=== PATIENT | male | born 1970 | race Caucasian/White ===

== ENCOUNTER 2020-11-29 06:00 | Inpatient (IN) ==
[2020-11-26 11:48] LABS: Basophils % 0.8 % (0.0-0.8); Eosinophils # 0.1 10*3/uL (0.0-0.87); Eosinophils % 2.6 % (0.00-10.9); Hematocrit 46.4 VOL% (42.0-52.0); Immature Granulocytes % 0.2 %; Immature Granulocytes Absolute 0.01 #; Lymphocytes # 1.7 10*3/uL (1.4-4.0); Lymphocytes % 33.3 % (21.2-54.2); Mean Corpuscular HGB Conc 34.5 GM/DL (32-36); Mean Corpuscular Volume 92.6 FL (87-102); Mean Platelet Volume 10.4 FL (9.6-12.0); Monocytes % 8.8 % (1.7-12.7); Neutrophils % 54.3 % (38.7-73.9); Platelet Count 303 T/CUMM (130-400); Red Blood Count 5.01 MC/CUMM (3.8-5.5)
[2020-11-26 11:57] LABS: Calcium 8.5 MG/DL (8.5-10.1); Osmolality,Calculated 281.3 MOS/KG (273-304); Potassium 4.5 MMOL/L (3.5-5.1)
[2020-11-29] MEDS ORDERED: TISSUE ADHESIVE 1 EACH APPLICATOR TOP ONE (06:11)
[2020-11-29] MEDS ORDERED: INDOCYANINE GREEN 25 MG VIAL IV ONE ×2 (06:11→08:40)
[2020-11-29] MEDS ORDERED: propofoL 200 MG/20 ML VIAL IV ONE (06:13)
[2020-11-29] MEDS ORDERED: LIDOCAINE 2% 5 ML VIAL ONE (06:13)
[2020-11-29] MEDS ORDERED: ROCURONIUM 50 MG/5 ML VIAL IV ONE (06:13)
[2020-11-29] MEDS ORDERED: MIDAZOLAM 2 MG/2 ML VIAL ONE ×2 (06:14→07:05)
[2020-11-29] MEDS ORDERED: fentaNYL 100 MCG/2 ML VIAL ONE ×2 (06:14→07:05)
[2020-11-29] MEDS ORDERED: BUPIVACAINE MPF 0.25% 30 ML VIAL ONE (06:24)
[2020-11-29] MEDS ORDERED: LIDOCAINE 1% 5 ML VIAL ONE (06:25)
[2020-11-29] MEDS ORDERED: GABAPENTIN 400 MG CAPSULE PO ONE (06:29)
[2020-11-29] MEDS ORDERED: FAMOTIDINE 20 MG TABLET PO ONE (06:29)
[2020-11-29] MEDS ORDERED: DIAZEPAM 5 MG TABLET PO ONE (06:29)
[2020-11-29] MEDS ORDERED: ALBUTEROL 2.5 MG/3 ML NEB RESP TX ONE (06:29)
[2020-11-29] MEDS ORDERED: ACETAMINOPHEN 500 MG TABLET PO ONE (06:29)
[2020-11-29] MEDS ORDERED: ERTAPENEM 1,000 MG in SODIUM CHLORIDE 0.9% 100 ML IV ONE (06:30)
[2020-11-29] MEDS: LACTATED RINGERS 1,000 ML IV SCH ×3 (06:53→18:46)
[2020-11-29] MEDS ORDERED: SUCCINYLCHOLINE 200 MG/10 ML VIAL ONE (07:46)
[2020-11-29] MEDS ORDERED: ePHEDrine 50 MG/ML VIAL ONE (08:40)
[2020-11-29] MEDS ORDERED: ONDANSETRON 4 MG/2 ML VIAL ONE ×2 (08:47→11:30)
[2020-11-29] MEDS ORDERED: DEXAMETHASONE 4 MG/1 ML VIAL ONE (08:47)
[2020-11-29] MEDS ORDERED: SEVOFLURANE 1 UNIT/15 MINUTE INH ONE (11:29)
[2020-11-29] MEDS ORDERED: NEOSTIGMINE 10 MG/10 ML VIAL ONE (11:30)
[2020-11-29] MEDS ORDERED: LACTATED RINGERS 1,000 ML IV ONE (11:30)
[2020-11-29] MEDS ORDERED: GLYCOPYRROLATE 0.4 MG/2 ML VIAL ONE (11:30)
[2020-11-29] MEDS ORDERED: ONDANSETRON 4 MG/2 ML VIAL IV PRN ×2 (11:38→12:18)
[2020-11-29 11:59] LABS: Bilirubin,Urine Negative (Negative); Blood, Urine Large mg/dL (Negative); Glucose,Urine (UA) Negative (Negative); Ketones,Urine 5 mg/dL (Negative); Mucus,Urine Few /LPF (Occasional); Nitrite,Urine Negative (Negative); Protein,Urine 30 MG/DL; RBC,Urine 418 /HPF (0-4); Squamous Epithelial Cell,Urine Occasional /HPF (0-10); Urine Appearance CLEAR (Clear); Urine Color BLUE (Yellow)
[2020-11-29] MEDS: KETOROLAC 15 MG/1 ML VIAL IV SCH ×2 (12:00→18:50)
[2020-11-29] MEDS: PHENAZOPYRIDINE 95 MG TABLET PO SCH ×2 (12:00→16:45)
[2020-11-29 12:02] LABS: Amorphous Crystals,Urine Occasional /HPF (Few); WBC,Urine 25 /HPF (0-6)
[2020-11-29] MEDS: HYDROmorphone 2 MG/1 ML VIAL IV PRN ×5 (12:25→20:53)
[2020-11-29 12:33] LABS: Basophils % 0.2 % (0.0-0.8); Eosinophils % 0.1 % (0.00-10.9); Hematocrit 47.6 VOL% (42.0-52.0); Hemoglobin 16.2 GM/DL (14.0-18.0); Immature Granulocytes % 0.4 %; Immature Granulocytes Absolute 0.07 #; Lymphocytes # 0.5 10*3/uL (1.4-4.0); Lymphocytes % 3.2 % (21.2-54.2); Mean Corpuscular Volume 93.3 FL (87-102); Mean Platelet Volume 9.4 FL (9.6-12.0); Monocytes % 1.1 % (1.7-12.7); Platelet Count 273 T/CUMM (130-400); Red Cell Distribution Width 12.8 % (9.3-17.3); White Blood Count 15.9 T/CUMM (4-12)
[2020-11-29 13:05] LABS: Calcium 8.6 MG/DL (8.5-10.1); Osmolality,Calculated 282.3 MOS/KG (273-304); Potassium 4.1 MMOL/L (3.5-5.1)
[2020-11-29 13:20] LABS: Lymphocytes 3 % (20-55); Segmented Neutrophils 97 % (50-85); Total Cells Counted 100
[2020-11-29 13:21] LABS: Platelet Estimate Adequate
[2020-11-29] MEDS: ALVIMOPAN 12 MG CAPSULE PO SCH (20:49)
[2020-11-30] MEDS: KETOROLAC 15 MG/1 ML VIAL IV SCH ×4 (00:09→18:15)
[2020-11-30] MEDS: LACTATED RINGERS 1,000 ML IV SCH ×2 (04:56→17:09)
[2020-11-30 05:49] LABS: Basophils % 0.2 % (0.0-0.8); Eosinophils % 0.1 % (0.00-10.9); Hematocrit 41.3 VOL% (42.0-52.0); Immature Granulocytes % 0.4 %; Immature Granulocytes Absolute 0.04 #; Lymphocytes # 1.5 10*3/uL (1.4-4.0); Lymphocytes % 12.8 % (21.2-54.2); Mean Corpuscular HGB Conc 33.9 GM/DL (32-36); Mean Corpuscular Volume 91.8 FL (87-102); Mean Platelet Volume 9.8 FL (9.6-12.0); Monocytes % 8.8 % (1.7-12.7); Neutrophils % 77.7 % (38.7-73.9); Platelet Count 292 T/CUMM (130-400); Red Cell Distribution Width 12.5 % (9.3-17.3); White Blood Count 11.4 T/CUMM (4-12)
[2020-11-30] MEDS: ENOXAPARIN 40 MG/0.4 ML SYRINGE SUBCUT SCH (06:00)
[2020-11-30 06:08] LABS: Calcium 8.3 MG/DL (8.5-10.1); Osmolality,Calculated 274.8 MOS/KG (273-304); Potassium 3.9 MMOL/L (3.5-5.1)
[2020-11-30] MEDS: HYDROmorphone 2 MG/1 ML VIAL IV PRN ×2 (06:14→20:55)
[2020-11-30] MEDS: ALVIMOPAN 12 MG CAPSULE PO SCH ×2 (08:59→20:47)
[2020-11-30] MEDS: PHENAZOPYRIDINE 95 MG TABLET PO SCH ×3 (08:59→18:15)
[2020-11-30] MEDS ORDERED: ALBUTEROL 2.5 MG/3 ML NEB RESP TX PRN (10:50)
[2020-11-30] MEDS: SIMVASTATIN 10 MG TABLET PO SCH (20:47)
[2020-12-01] MEDS: LACTATED RINGERS 1,000 ML IV SCH ×2 (01:05→11:22)
[2020-12-01] MEDS: HYDROmorphone 2 MG/1 ML VIAL IV PRN ×3 (01:07→21:03)
[2020-12-01] MEDS: KETOROLAC 15 MG/1 ML VIAL IV SCH ×4 (01:10→19:15)
[2020-12-01] MEDS: ENOXAPARIN 40 MG/0.4 ML SYRINGE SUBCUT SCH (06:25)
[2020-12-01] MEDS: PHENAZOPYRIDINE 95 MG TABLET PO SCH ×3 (09:15→17:12)
[2020-12-01] MEDS: PANTOPRAZOLE 40 MG TABLET PO SCH (09:15)
[2020-12-01] MEDS: ALVIMOPAN 12 MG CAPSULE PO SCH ×2 (09:15→21:01)
[2020-12-01] MEDS: SIMVASTATIN 10 MG TABLET PO SCH (21:01)
[2020-12-02] MEDS: KETOROLAC 15 MG/1 ML VIAL IV SCH ×4 (01:02→17:15)
[2020-12-02] MEDS: ENOXAPARIN 40 MG/0.4 ML SYRINGE SUBCUT SCH (06:04)
[2020-12-02] MEDS: LACTATED RINGERS 1,000 ML IV SCH (06:05)
[2020-12-02] MEDS: PHENAZOPYRIDINE 95 MG TABLET PO SCH ×3 (08:52→17:14)
[2020-12-02] MEDS: PANTOPRAZOLE 40 MG TABLET PO SCH (08:52)
[2020-12-02] MEDS: ALVIMOPAN 12 MG CAPSULE PO SCH ×2 (08:53→20:49)
[2020-12-02 09:21] LABS: Basophils # 0.1 10*3/uL (0.0-0.2); Basophils % 0.6 % (0.0-0.8); Eosinophils # 0.2 10*3/uL (0.0-0.87); Eosinophils % 1.8 % (0.00-10.9); Hematocrit 42.3 VOL% (42.0-52.0); Hemoglobin 14.3 GM/DL (14.0-18.0); Immature Granulocytes % 0.5 %; Immature Granulocytes Absolute 0.05 #; Lymphocytes # 1.5 10*3/uL (1.4-4.0); Lymphocytes % 16.4 % (21.2-54.2); Mean Corpuscular HGB Conc 33.8 GM/DL (32-36); Mean Corpuscular Volume 92.8 FL (87-102); Mean Platelet Volume 9.7 FL (9.6-12.0); Monocytes % 7.9 % (1.7-12.7); Neutrophils % 72.8 % (38.7-73.9); Platelet Count 276 T/CUMM (130-400); Red Blood Count 4.56 MC/CUMM (3.8-5.5); Red Cell Distribution Width 12.5 % (9.3-17.3); White Blood Count 9.4 T/CUMM (4-12)
[2020-12-02 09:36] LABS: Calcium 8.7 MG/DL (8.5-10.1); Osmolality,Calculated 276.5 MOS/KG (273-304); Potassium 4.1 MMOL/L (3.5-5.1)
[2020-12-02] MEDS: HYDROmorphone 2 MG/1 ML VIAL IV PRN (20:48)
[2020-12-02] MEDS: SIMVASTATIN 10 MG TABLET PO SCH (20:49)
[2020-12-03] MEDS: KETOROLAC 15 MG/1 ML VIAL IV SCH ×2 (01:02→05:07)
[2020-12-03] MEDS: ENOXAPARIN 40 MG/0.4 ML SYRINGE SUBCUT SCH (05:07)
[2020-12-03] MEDS: LACTATED RINGERS 1,000 ML IV SCH (06:41)
[2020-12-03 07:30] VITALS: BP 118/79
[2020-12-03] MEDS: PHENAZOPYRIDINE 95 MG TABLET PO SCH (08:30)
[2020-12-03] MEDS: PANTOPRAZOLE 40 MG TABLET PO SCH (08:30)
[2020-12-03] MEDS: ALVIMOPAN 12 MG CAPSULE PO SCH (08:30)
== END 2020-12-03 10:39 | disposition home or self-care (01) | DRG 331 ==
LOC: N.OR 06:00 → N.SDSINP 06:03 → N.3E 14:19
PROVIDERS: ADMIT Student in an Organized Health Care Education/Training Program; ATTEND Student in an Organized Health Care Education/Training Program